=== PATIENT | female | born 1955 | race Caucasian/White ===

== ENCOUNTER → 2018-11-29 | Outpatient (CLI) | payer SELFPAY ==
--- NOTE | 2018-11-29 10:59 | PCVCIMAG ---
APPROVED REPORT Study performed: 11/29/2018 08:42:16 EXAM: Comprehensive 2D, Doppler, and color-flow Echocardiogram Patient Location: Echo lab Room #: 2Status: routine BSA: 1.78 HR: 62 bpmBP: 126/80 mmHg Rhythm: NSR Other Information Study Quality: Good Indications Diabetes Atrial Fibrillation Hx A Fib- Sinus rhythm with rhythm medicine, Kidney disease,Study patient 2D Dimensions IVSd: 8.66 (7-11mm)LVOT Diam: 19.08 (18-24mm) LVDd: 46.43 mm PWd: 7.79 (7-11mm)Ascending Ao: 25.87 (22-36mm) LVDs: 31.43 (25-40mm) Left Atrium: 31.92 (27-40mm) Aortic Root: 23.26 mm LV Single Plane 4CH: 53.76 % LV Single Plane 2CH: 65.01 % Biplane EF: 60.2 % Volumes Left Atrial Volume (Systole) Single Plane 4CH: 49.94 mLSingle Plane 2CH: 51.73 mL Biplane LA Volume: 55.00 mLLA ESV Index: 31.00 mL/m2 Aortic Valve AoV Peak Tejas.: 1.54 m/s AO Peak Gr.: 9.52 mmHgLVOT Max P.53 mmHg LVOT Max V: 1.06 m/s ALINE Vmax: 1.97 cm2 Mitral Valve E/A Ratio: 1.6 MV Decel. Time: 232.56 ms MV E Max Tejas.: 0.94 m/s MV A Tejas.: 0.59 m/s IVRT: 96.89 ms TDI E/Lateral E': 7.23E/Medial E': 10.44 Medial E' Tejas.: 0.09 m/s Lateral E' Tejas.: 0.13 m/s Pulmonary Valve PV Peak Tejas.: 0.97 m/sPV Peak Gr.: 3.79 mmHg Pulmonary Vein P Vein S: 0.45 m/sP Vein A: 0.28 m/s P Vein D: 0.62 m/sP Vein A Dur.: 114.2 msec P Vein S/D Ratio: 0.73 Tricuspid Valve TR Peak Tejas.: 2.12 m/s TR Peak Gr.: 17.99 mmHg TV Vmax: 0.90 m/sPA Pressure: 25.00 mmHg Left Ventricle The left ventricle is normal size. There is normal LV segmental wall motion. There is normal left ventricular wall thickness. Left ventricular systolic function is normal. The left ventricular ejection fraction is within the normal range. LVEF is 60%. The left ventricular diastolic function is normal. Right Ventricle The right ventricle is normal size. The right ventricular systolic function is normal. Atria The left atrium size is normal. The right atrium size is normal. Aortic Valve Aortic valve is trileaflet. The aortic valve is normal in structure and function. No aortic regurgitation is present. There is no aortic valvular stenosis. Mitral Valve The mitral valve is normal in structure. Mild mitral regurgitation. No evidence of mitral valve stenosis. Tricuspid Valve The tricuspid valve is normal in structure. There is no tricuspid valve regurgitation noted. Pulmonic Valve The pulmonary valve is normal in structure. There is no pulmonic valvular regurgitation. Great Vessels The aortic root is normal in size. The ascending aorta is normal in size. Aortic arch is normal in caliber. IVC is normal in size and collapses >50% with inspiration. Pericardium There is no pericardial effusion. There is no pleural effusion. <Conclusion> The left ventricle is normal size. LVEF is 60%. Aortic valve is trileaflet. The aortic valve is normal in structure and function. The mitral valve is normal in structure. Mild mitral regurgitation. The tricuspid valve is normal in structure. The pulmonary valve is normal in structure. There is no pericardial effusion.
== END | disposition home or self-care (01) ==
LOC: PCVCIMAG 08:37
PROVIDERS: ATTEND Internal Medicine Nephrology
DX: Z00.6 Encounter for examination for normal comparison and control in clinical research program (principal); I34.0 Nonrheumatic mitral (valve) insufficiency; I48.0 Paroxysmal atrial fibrillation; E11.9 Type 2 diabetes mellitus without complications; N28.9 Disorder of kidney and ureter, unspecified
CPT/HCPCS: 93306